=== PATIENT | male | born 1975 | race Caucasian/White ===

== ENCOUNTER 2017-02-01 15:41 | Inpatient (IN) | payer OTHER ==
[~2017-02-01] VITALS: Ht 172.7 cm; Wt 86.2 kg
[2017-02-01 15:49] VITALS: BP 134/97
[2017-02-01] MEDS ORDERED: PAXIL20 MG PO (15:52)
--- NOTE | 2017-02-01 15:55 | NUR ---
Patient to bed 07.
--- NOTE | 2017-02-01 16:04 | NUR ---
PT C/O HEAD PAIN/BLEEDING, PT. FAMILY STATES HE FELL ON BACK OF HEAD WHILE ICE SKATING AND HE WAS KNOCKED OUT FOR 20 MINUTES, PT. STATES HE DOESNT REMEMBER ANYTHING . DENIES N/V/D; SKIN IS PINK/WARM/DRY; AAOX3 , LUNGS CLEAR BL; HR EVEN AND REGULAR; PT DENIES ANY FEVER, CP, SOB, OR COUGH AT THIS TIME; PATIENT STATES PAIN OF 3/10 AT THIS TIME; VSS; PATIENT POSITIONED FOR COMFORT; HOB ELEVATED; BEDRAILS UP X2; BED DOWN.PT'S AT BEDSIDE. ER MD MADE AWARE OF PT STATUS.
--- NOTE | 2017-02-01 16:05 | NUR ---
PT LEFT FOR HEAD CT VIA WHEELCHAIR PER TECH.
--- NOTE | 2017-02-01 16:14 | NUR ---
Patient back from CT via wheelchair per tech.
--- NOTE | 2017-02-01 17:00 | NUR ---
DR. ZIEGLER AT BEDSIDE TO ASSESS PT.
[2017-02-01] MEDS ORDERED: MECLIZINE 25 MG TAB PO ONE (17:15)
--- NOTE | 2017-02-01 17:46 | NUR ---
Dr. Ryder at bedside to evaluate patient.
--- NOTE | 2017-02-01 18:08 | NUR ---
PT RESTING IN BED. NO S/S OF RESPIRATORY DISTRES NOTED.
--- NOTE | 2017-02-01 18:20 | NUR ---
REPORT GIVEN TO JHONY GREY.
--- NOTE | 2017-02-01 18:29 | NUR ---
PT IS AWAKE, ALERT, AND ORIENTED AT THIS TIME. ADMITTED PT TO TELE 107B, ACCOMAPNIED BY CHARGE NURSE .
--- NOTE | 2017-02-01 18:35 | NUR ---
RECEIVED FROM ER VIA DAMI, AWAKE, ALERT, AND ORIENTED X4. SPEECH CLEAR. C/O HEADACHE 01/23. NO SOB, NOTED. SKIN WARM, DRY, AND INTACT. KEEP COMFORTABLE ON BED. EXPLAINED DIAGNOSIS, PLAN OF CARE, PAIN MANAGEMENT TEACHING, USE OF CALL LIGHT/BED/TV/BATHROOM. VERBALIZED UNDERSTANDING. CALL LIGHT WITHIN REACH. WILL ENDORSE TO NIGHTSHIFT TO CONTINUE ADMISSION.
[2017-02-01] MEDS ORDERED: ONDANSETRON 4 MG/2 ML VIAL IVP PRN (19:05)
[2017-02-01] MEDS ORDERED: HYDROcodone/APAP 5/325 MG 1 TAB TAB PO PRN (19:05)
[2017-02-01] MEDS ORDERED: DOCUSATE SODIUM 100 MG GELCAP PO PRN (19:05)
[2017-02-01] MEDS ORDERED: MORPHINE SULFATE 2 MG/ML SYR IVP PRN (19:05)
[2017-02-01] MEDS ORDERED: ACETAMINOPHEN 325 MG TAB PO PRN (19:05)
--- NOTE | 2017-02-01 19:15 | NUR ---
BEDSIDE REPORT GIVEN TO JAYSON AGRAWAL. RESTING ON BED COMFORTABLY. IN STABLE CONDITION. ALSO ENDORSED TO CONTINUE TO ADMIT PT..
--- NOTE | 2017-02-01 19:16 | NUR ---
RECEIVED REPORT FROM CLARA VELARDE FOR CONTINUITY OF CARE. PATIENT IS A&OX4, DISCUSSED PLAN OF CARE WITH PATIENT AND ORIENTED TO ROOM, VERBALIZED UNDERSTANDING. SHIFT ASSESSMENT DONE, VS TAKEN, STABLE. NO S/S OF RESPIRATORY DISTRESS NOTED ON ROOM AIR. PATIENT STATES HEADACHE, WILL ADMINISTER PAIN MEDICATION. IV TO LT AC 20 GAUGE PATENT AND FLUSHED. SKIN ASSESSMENT DONE, SKIN INTACT. WRISTBANDS APPLIED. SAFETY PRECAUTIONS ENFORCED. CALL LIGHT PLACED WITHIN REACH. WILL CONTINUE TO MONITOR.
[2017-02-01 20:00] VITALS: BP 136/77
[2017-02-01] MEDS: NACL 0.9% 1,000 ML IV SCH (20:41)
--- NOTE | 2017-02-01 20:41 | NUR ---
IMPLEMENTED IV FLUIDS. PT STATES 6/10 HEADACHE, ADMINISTERED TYLENOL PER MD ORDER. COLLECTED URINE FOR URINALYSIS. WILL CONTINUE TO MONITOR.
--- NOTE | 2017-02-01 22:00 | NUR ---
PATIENT IS SLEEPING. NO S/S OF DISTRESS OR DISCOMFORT NOTED. CALL LIGHT IN REACH.
[2017-02-02] VITALS: BP 119/75
--- NOTE | 2017-02-02 00:02 | NUR ---
VS TAKEN, STABLE. ALL NEEDS MET AT THIS TIME. NO S/S OF DISTRESS OR DISCOMFORT NOTED. WILL CONTINUE TO MONITOR.
--- NOTE | 2017-02-02 02:11 | NUR ---
PT IS SLEEPING. NO S/S OF DISTRESS OR DISCOMFORT NOTED. WILL CONTINUE TO MONITOR.
[2017-02-02 04:00] VITALS: BP 118/78
--- NOTE | 2017-02-02 04:09 | NUR ---
VS TAKEN, STABLE. PT EXPRESSED THAT HE WANTS TO GO HOME IN THE MORNING. ENCOURAGED PATIENT TO WAIT FOR LAB RESULTS, VERBALIZED UNDERSTANDING. CALL LIGHT WITHIN REACH.
[2017-02-02] MEDS: NACL 0.9% 1,000 ML IV SCH (04:41)
--- NOTE | 2017-02-02 05:51 | NUR ---
PT IS SLEEPING. NO S/S OF DISTRESS OR DISCOMFORT NOTED.
[2017-02-02] MEDS ORDERED: DOCUSATE SODIUM 100 MG GELCAP PO PRN (07:04)
--- NOTE | 2017-02-02 07:18 | NUR ---
ENDORSED PATIENT TO DAY RN FOR CONTINUITY OF CARE, PATIENT IS IN STABLE CONDITION.
--- NOTE | 2017-02-02 07:20 | NUR ---
RECEIVED REPORT FROM NIGHT RN. PT SLEEPING IN BED. AAOX4. NO S/S OF ACUTE DISTRESS. PT DENIES PAIN. IV SITE PATENT AND INTACT. PT STATES HE WANTS TO "CHECK OUT" ADVISED PT TO WAIT UNTIL MD ROUNDED. PT VERBALIZED UNDERSTANDING AND AGREED. CALL LIGHT WITHIN REACH. SAFETY MEASURES ENSURED. WILL CONTINUE TO MONITOR.
[2017-02-02 07:42] VITALS: BP 118/69
--- NOTE | 2017-02-02 08:57 | NUR ---
PT WANTS TO AMA. EXPLAINED RISK VS BENEFITS OF LEAVING AGAINST MEDICAL ADVICE. PT VERBALIZES UNDERSTANDING. PT STILL WANTS TO LEAVE. MADE AWARE. IV TAKEN OUT. TIP INTACT. NO S/S OF ACUTE DISTRESS. PT DENIES PAIN. PT TAKEN OFF UNIT.
[2017-02-02] MEDS ORDERED: FAMOTIDINE 20 MG TAB PO SCH (09:00)
--- NOTE | 2017-02-02 09:08 | NUR ---
PATIENT HAS BEEN SCREENED AND CATEGORIZED LOW NUTRITION RISK. PATIENT WILL BE SEEN WITHIN 7 DAYS OF ADMISSION. 02/08/[address]
--- NOTE | 2017-02-02 11:51 | NUR ---
FAXED INITIAL REVIEW TO [facility] [phone] PHONE MARIE [phone]
== END 2017-02-02 08:57 | disposition left against medical advice (07) | DRG 913 ==
LOC: MED 15:43 → MTU 17:21
PROVIDERS: ADMIT Student in an Organized Health Care Education/Training Program; ATTEND Student in an Organized Health Care Education/Training Program
DX: S09.90XA Unspecified injury of head, initial encounter (principal); N17.0 Acute kidney failure with tubular necrosis; Z53.21 Procedure and treatment not carried out due to patient leaving prior to being seen by health care provider; F07.81 Postconcussional syndrome; F41.1 Generalized anxiety disorder; W01.0XXA Fall on same level from slipping, tripping and stumbling without subsequent striking against object, initial encounter; Z82.49 Family history of ischemic heart disease and other diseases of the circulatory system; Z82.3 Family history of stroke; Z79.899 Other long term (current) drug therapy; Y93.21 Activity, ice skating; Y92.89 Other specified places as the place of occurrence of the external cause; Y99.8 Other external cause status